=== PATIENT | female | born 1960 | race Caucasian/White ===

== ENCOUNTER 2017-02-19 02:25 | Inpatient (IN) | payer BC ==
[~2017-02-19] VITALS: Ht 165.1 cm; Wt 87.4 kg
[2017-02-19] MEDS ORDERED: HYDROmorphone HCL 2 MG/ML VL IV ONE ×4 (03:30→11:00)
[2017-02-19] MEDS ORDERED: ONDANSETRON HCL 4 MG/2 ML VIAL IV ONE (03:30)
[2017-02-19] MEDS ORDERED: SODIUM CHLORIDE 0.9% 1,000 ML IV ONE (03:30)
[2017-02-19 04:53] LABS: Basophils # (auto) 0 uL; Basophils % (auto) 0.2 % (0.0-2.0); Eosinophils # (auto) 0 uL; Eosinophils % (auto) 0.2 % (0.0-7.0); Hematocrit 34.2 % (36.0-46.0); Hemoglobin 11.4 g/dL (12.2-16.2); Lymphocytes # (auto) 1.4 uL; Lymphocytes % (auto) 17.8 % (10.0-50.0); Mean Corpuscular Hemoglobin 32.3 pg (28.0-32.0); Mean Corpuscular Hgb Conc. 33.4 g/dL (32.0-36.0); Mean Corpuscular Volume 96.8 fL (80.0-100.0); Mean Platelet Volume 7.2 fL (7.4-10.4); Monocytes # (auto) 0.5 uL; Monocytes % (auto) 6.8 % (0.0-12.0); Neutrophils # (auto) 5.9 uL; Platelet Count (auto) 267 10^3/uL (140-450); Red Cell Distribution Width 13.4 % (11.6-16.0); White Blood Cell 7.9 10^3/uL (4.4-10.8)
[2017-02-19 05:13] LABS: INR 0.95 (0.9-1.15); Partial Thromboplastin Time 27.7 sec (22.64-33.71); Prothrombin Time 10.3 sec (9.37-12.3)
[2017-02-19 05:30] LABS: Albumin 3.4 g/dL (3.4-5.0); BUN/Creatinine Ratio 18.8; Bilirubin, Total 0.4 mg/dL (0.2-1.0); Calcium 8.3 mg/dL (8.5-10.1); Potassium 3.6 mmol/L (3.5-5.1); Total Protein 6.8 g/dL (6.4-8.2)
[2017-02-19] MEDS ORDERED: SODIUM CHLORIDE 0.9% 1,000 ML IV SCH (06:42)
[2017-02-19] MEDS ORDERED: HYDROmorphone HCL 2 MG/ML VL IV PRN (06:45)
[2017-02-19] MEDS ORDERED: fentaNYL CITRATE 100 MCG/2 ML VL IV ONE (06:45)
[2017-02-19] MEDS ORDERED: ACETAMINOPHEN 325 MG TAB PO PRN (06:45)
[2017-02-19] MEDS: LEVOTHYROXINE SODIUM 100 MCG TAB PO SCH ×2 (07:14→09:40)
[2017-02-19] MEDS: FAMOTIDINE 20 MG TAB PO SCH ×2 (09:40→20:53)
[2017-02-19 10:00] VITALS: BP 155/86
[2017-02-19 10:22] VITALS: BP 155/86
[2017-02-19 11:43] LABS: Urine Bilirubin Negative (Negative); Urine Blood TRACE /uL (Negative); Urine Color Yellow (Yellow); Urine Glucose Normal (Normal); Urine Ketone Negative (Negative); Urine Nitrite Negative (Negative); Urine RBC <1 /hpf (0 - 4); Urine Urobilinogen Normal (Negative); Urine pH 6.5 (5.0-8.0)
[2017-02-19] MEDS: HYDROmorphone HCL 2 MG/ML VL IV PRN ×3 (12:58→20:53)
[2017-02-19] MEDS ORDERED: THIAMINE HCL 100 MG/ML 2ML VIAL IV ONE (13:00)
[2017-02-19] MEDS ORDERED: FOLIC ACID 1 MG in D5W 5% 50 ML IV ONE (13:00)
[2017-02-19] MEDS ORDERED: LORazepam 2MG/ML-1ML VIAL IV PRN (13:00)
[2017-02-19 13:18] LABS: B-Type Natriuretic Peptide 139.86 pg/mL (0-100); Temperature: 22.9 C (20.0-25.0)
[2017-02-19 13:33] VITALS: BP 149/81
[2017-02-19 17:00] VITALS: BP 151/76
[2017-02-19] MEDS ORDERED: IOHEXOL 300 MG/ML 100ML BOTTLE IJ ONE (17:47)
[2017-02-19 22:00] VITALS: BP 147/89
[2017-02-20] MEDS: HYDROmorphone HCL 2 MG/ML VL IV PRN ×7 (01:04→23:50)
[2017-02-20 05:00] VITALS: BP 131/76
[2017-02-20 05:45] LABS: Basophils # (auto) 0 uL; Basophils % (auto) 0.3 % (0.0-2.0); Eosinophils # (auto) 0 uL; Eosinophils % (auto) 0.2 % (0.0-7.0); Hematocrit 34.6 % (36.0-46.0); Hemoglobin 11.5 g/dL (12.2-16.2); Lymphocytes # (auto) 1.5 uL; Lymphocytes % (auto) 18.5 % (10.0-50.0); Mean Corpuscular Hgb Conc. 33.3 g/dL (32.0-36.0); Mean Corpuscular Volume 95.8 fL (80.0-100.0); Mean Platelet Volume 8.3 fL (7.4-10.4); Monocytes # (auto) 0.7 uL; Monocytes % (auto) 8.9 % (0.0-12.0); Neutrophils # (auto) 5.8 uL; Neutrophils % (auto) 72.1 % (37.0-80.0); Platelet Count (auto) 241 10^3/uL (140-450)
[2017-02-20] MEDS: LEVOTHYROXINE SODIUM 100 MCG TAB PO SCH ×2 (06:03→09:27)
[2017-02-20 06:07] LABS: Albumin 3.5 g/dL (3.4-5.0); BUN/Creatinine Ratio 10.7; Calcium 8.7 mg/dL (8.5-10.1); Potassium 3.6 mmol/L (3.5-5.1)
[2017-02-20 06:09] LABS: Bilirubin, Total 0.9 mg/dL (0.2-1.0); Total Protein 6.8 g/dL (6.4-8.2)
[2017-02-20 07:30] VITALS: BP 139/92
[2017-02-20] MEDS ORDERED: ENOXAPARIN SOD 40 MG/0.4 ML SYRINGE SC ONE (07:45)
[2017-02-20] MEDS: ONDANSETRON HCL 4 MG/2 ML VIAL IV PRN (08:03)
[2017-02-20 09:00] VITALS: BP 139/92
[2017-02-20] MEDS: diphenhdrAMINE HCL 50 MG/1 ML VL IV PRN ×2 (09:26→21:31)
[2017-02-20] MEDS: FOLIC ACID 1 MG TAB PO SCH (09:27)
[2017-02-20] MEDS: FAMOTIDINE 20 MG TAB PO SCH ×2 (09:27→21:31)
[2017-02-20] MEDS: THIAMINE HCL 100 MG TAB PO SCH (09:28)
[2017-02-20] MEDS: HYDROcodone-ACET 5/325MG TAB PO PRN (09:44)
[2017-02-20 13:00] VITALS: BP 134/91
[2017-02-20 20:00] VITALS: BP 147/87
[2017-02-20 21:15] VITALS: BP 147/87
[2017-02-21] MEDS: HYDROcodone-ACET 5/325MG TAB PO PRN (02:10)
[2017-02-21] MEDS: HYDROmorphone HCL 2 MG/ML VL IV PRN ×10 (03:10→22:47)
[2017-02-21 05:17] VITALS: BP 136/76
[2017-02-21 05:49] LABS: Basophils # (auto) 0 uL; Basophils % (auto) 0.1 % (0.0-2.0); Eosinophils # (auto) 0 uL; Eosinophils % (auto) 0.4 % (0.0-7.0); Hematocrit 36.4 % (36.0-46.0); Hemoglobin 12.1 g/dL (12.2-16.2); Lymphocytes # (auto) 1.1 uL; Lymphocytes % (auto) 11.6 % (10.0-50.0); Mean Corpuscular Hemoglobin 32.4 pg (28.0-32.0); Mean Corpuscular Hgb Conc. 33.2 g/dL (32.0-36.0); Mean Corpuscular Volume 97.4 fL (80.0-100.0); Mean Platelet Volume 8.2 fL (7.4-10.4); Monocytes # (auto) 0.8 uL; Neutrophils # (auto) 7.3 uL; Neutrophils % (auto) 78.9 % (37.0-80.0); Platelet Count (auto) 227 10^3/uL (140-450); Red Cell Distribution Width 13.1 % (11.6-16.0); White Blood Cell 9.3 10^3/uL (4.4-10.8)
[2017-02-21 06:02] LABS: BUN/Creatinine Ratio 18.4; Potassium 3.6 mmol/L (3.5-5.1)
[2017-02-21] MEDS: ONDANSETRON HCL 4 MG/2 ML VIAL IV PRN ×3 (06:23→22:48)
[2017-02-21] MEDS: LEVOTHYROXINE SODIUM 100 MCG TAB PO SCH (07:02)
[2017-02-21 07:30] VITALS: BP 135/81
[2017-02-21 09:08] VITALS: BP 135/81
[2017-02-21] MEDS ORDERED: hydrALAZINE HCL 20 MG/ML VL IV PRN (09:15)
[2017-02-21] MEDS ORDERED: LABETALOL HCL 5 MG/ML 4ML SYRINGE IV PRN (09:15)
[2017-02-21] MEDS ORDERED: KETOROLAC TROMETH 30 MG/ML 1ML VIAL IV ONE (09:15)
[2017-02-21] MEDS ORDERED: MORPHINE SULF INJ 2 MG/ML SYRINGE 1ML IV PRN (09:15)
[2017-02-21] MEDS ORDERED: MIDAZOLAM HCL 1MG/1ML-2 ML VIAL IV PRN (09:15)
[2017-02-21] MEDS ORDERED: ePHEDrine SULFATE 50 MG/ML AMP IV PRN (09:15)
[2017-02-21] MEDS ORDERED: ONDANSETRON HCL 4 MG/2 ML VIAL IV ONE (09:15)
[2017-02-21] MEDS ORDERED: ceFAZolin 1GM/50ML D5W 50 ML IV ONE ×2 (09:31→09:54)
[2017-02-21] MEDS ORDERED: TETRACAINE 1% INJ 2 ML VIAL IJ ONE (09:42)
[2017-02-21] MEDS ORDERED: fentaNYL CITRATE 100 MCG/2 ML VL ONE (09:45)
[2017-02-21] MEDS ORDERED: MIDAZOLAM HCL 1MG/1ML-2 ML VIAL ONE ×2 (09:45→10:12)
[2017-02-21] MEDS ORDERED: PROPOFOL 10 MG/ML 20 ML IV ONE (10:00)
[2017-02-21] MEDS: FAMOTIDINE 20 MG TAB PO SCH ×2 (10:00→21:10)
[2017-02-21] MEDS ORDERED: DEXAMETHASONE SOD PHOS 10MG/1ML VIAL INJ ONE (10:00)
[2017-02-21] MEDS: FOLIC ACID 1 MG TAB PO SCH (10:00)
[2017-02-21] MEDS: THIAMINE HCL 100 MG TAB PO SCH (10:00)
[2017-02-21] MEDS ORDERED: MEPERIDINE HCL (50 MG/ML) 1 ML VIAL ONE (10:24)
[2017-02-21] MEDS ORDERED: PHENYLEPHRINE HCL 10 MG/ML VL ONE (10:49)
[2017-02-21] MEDS ORDERED: METOPROLOL TARTRATE 1MG/1ML-5ML VIAL IV ONE ×2 (13:07→13:30)
[2017-02-21] MEDS ORDERED: ENOXAPARIN SOD 40 MG/0.4 ML SYRINGE SC ONE (13:15)
[2017-02-21 13:33] LABS: Hemoglobin 11.9 g/dL (12.2-16.2)
[2017-02-21] MEDS ORDERED: SOTALOL HCL 80 MG TAB PO ONE (13:45)
[2017-02-21 16:53] VITALS: BP 96/62
[2017-02-21] MEDS: ceFAZolin 1GM/50ML D5W 50 ML IV SCH ×2 (18:24→23:35)
[2017-02-21] MEDS: SOTALOL HCL 80 MG TAB PO SCH (21:10)
[2017-02-21 21:34] VITALS: BP 114/72
[2017-02-22] MEDS: HYDROmorphone HCL 2 MG/ML VL IV PRN ×7 (01:05→20:49)
[2017-02-22] MEDS: ONDANSETRON HCL 4 MG/2 ML VIAL IV PRN ×3 (03:07→20:50)
[2017-02-22] MEDS: ceFAZolin 1GM/50ML D5W 50 ML IV SCH ×3 (05:08→18:20)
[2017-02-22 05:31] VITALS: BP 132/74
[2017-02-22] MEDS: LEVOTHYROXINE SODIUM 100 MCG TAB PO SCH (06:29)
[2017-02-22 07:10] LABS: Hematocrit 26.3 % (36.0-46.0); Hemoglobin 9.1 g/dL (12.2-16.2)
[2017-02-22 09:10] VITALS: BP 133/84
[2017-02-22] MEDS: ENOXAPARIN SOD 40 MG/0.4 ML SYRINGE SC SCH (10:00)
[2017-02-22] MEDS: THIAMINE HCL 100 MG TAB PO SCH (10:08)
[2017-02-22] MEDS: FOLIC ACID 1 MG TAB PO SCH (10:08)
[2017-02-22] MEDS: FAMOTIDINE 20 MG TAB PO SCH ×2 (10:08→21:50)
[2017-02-22] MEDS: SOTALOL HCL 80 MG TAB PO SCH ×2 (10:09→21:50)
[2017-02-22 12:48] VITALS: BP 131/68
[2017-02-22 17:34] VITALS: BP 108/50
[2017-02-22 20:00] VITALS: BP 108/67
[2017-02-22 22:00] VITALS: BP 108/67
[2017-02-23] VITALS (11 sets, daily range): BP systolic 88–139; BP diastolic 50–83
[2017-02-23] MEDS: ceFAZolin 1GM/50ML D5W 50 ML IV SCH ×3 (00:04→12:17)
[2017-02-23] MEDS: ONDANSETRON HCL 4 MG/2 ML VIAL IV PRN ×2 (05:04→20:41)
[2017-02-23] MEDS: HYDROmorphone HCL 2 MG/ML VL IV PRN ×4 (05:04→20:41)
[2017-02-23] MEDS: LEVOTHYROXINE SODIUM 100 MCG TAB PO SCH (06:41)
[2017-02-23 08:14] LABS: Hematocrit 25.2 % (36.0-46.0); Hemoglobin 8.6 g/dL (12.2-16.2)
[2017-02-23] MEDS: SOTALOL HCL 80 MG TAB PO SCH ×2 (09:33→22:00)
[2017-02-23] MEDS: FAMOTIDINE 20 MG TAB PO SCH ×2 (09:33→22:01)
[2017-02-23] MEDS: FOLIC ACID 1 MG TAB PO SCH (09:33)
[2017-02-23] MEDS: ENOXAPARIN SOD 40 MG/0.4 ML SYRINGE SC SCH (09:34)
[2017-02-23] MEDS: THIAMINE HCL 100 MG TAB PO SCH (09:34)
[2017-02-23] MEDS ORDERED: ALBUMIN 5% 250 ML IV ONE (23:15)
[2017-02-24] VITALS (7 sets, daily range): BP systolic 90–125; BP diastolic 46–76
[2017-02-24] MEDS: ONDANSETRON HCL 4 MG/2 ML VIAL IV PRN (03:58)
[2017-02-24] MEDS: HYDROmorphone HCL 2 MG/ML VL IV PRN ×7 (03:58→22:25)
[2017-02-24] MEDS: LEVOTHYROXINE SODIUM 100 MCG TAB PO SCH (06:33)
[2017-02-24] MEDS: FOLIC ACID 1 MG TAB PO SCH (09:17)
[2017-02-24] MEDS: FAMOTIDINE 20 MG TAB PO SCH ×2 (09:17→22:02)
[2017-02-24] MEDS: ENOXAPARIN SOD 40 MG/0.4 ML SYRINGE SC SCH (09:17)
[2017-02-24] MEDS: THIAMINE HCL 100 MG TAB PO SCH (09:18)
[2017-02-24] MEDS ORDERED: SOTALOL HCL 80 MG TAB PO SCH (10:00)
[2017-02-24 10:01] LABS: Hematocrit 32.4 % (36.0-46.0); Hemoglobin 10.7 g/dL (12.2-16.2)
[2017-02-24] MEDS ORDERED: DOCUSATE SOD 100 MG CAP PO ONE (10:30)
[2017-02-24] MEDS: HYDROcodone-ACET 5/325MG TAB PO PRN (20:10)
[2017-02-24] MEDS: DOCUSATE SOD 100 MG CAP PO SCH (22:00)
[2017-02-25 05:30] VITALS: BP 132/78
[2017-02-25] MEDS: HYDROmorphone HCL 2 MG/ML VL IV PRN ×3 (05:31→12:09)
[2017-02-25] MEDS: LEVOTHYROXINE SODIUM 100 MCG TAB PO SCH (05:31)
[2017-02-25 08:26] LABS: Hematocrit 28.5 % (36.0-46.0); Hemoglobin 9.6 g/dL (12.2-16.2)
[2017-02-25] MEDS ORDERED: RIVA10TA PO (08:52)
[2017-02-25 09:00] VITALS: BP 130/85
[2017-02-25] MEDS: DOCUSATE SOD 100 MG CAP PO SCH (10:00)
[2017-02-25] MEDS: FAMOTIDINE 20 MG TAB PO SCH (10:10)
[2017-02-25] MEDS: FOLIC ACID 1 MG TAB PO SCH (10:10)
[2017-02-25] MEDS: THIAMINE HCL 100 MG TAB PO SCH (10:10)
[2017-02-25] MEDS: ENOXAPARIN SOD 40 MG/0.4 ML SYRINGE SC SCH (10:11)
[2017-02-25] MEDS: HYDROcodone-ACET 5/325MG TAB PO PRN (10:11)
[2017-02-25 13:00] VITALS: BP 120/74
== END 2017-02-25 15:10 | disposition home health service (06) | DRG 470 ==
LOC: ER 02:25 → OVERFLOW 02:26 → EDUNIT# 02:26 → WEST WING 09:26 → TELE-WESTW 02-22 00:07
PROVIDERS: ADMIT Nurse Practitioner; ATTEND Internal Medicine
PROC: 0MTM0ZZ Resection of Left Hip Bursa and Ligament, Open Approach (ICD-10-PCS; 2017-02-21)
PROC: 0SRB0JZ Replacement of Left Hip Joint with Synthetic Substitute, Open Approach (ICD-10-PCS; principal; 2017-02-21 10:01)
PROC: 30233N1 Transfusion of Nonautologous Red Blood Cells into Peripheral Vein, Percutaneous Approach (ICD-10-PCS; 2017-02-23)
DX: S72.032A Displaced midcervical fracture of left femur, initial encounter for closed fracture (principal); X58.XXXA Exposure to other specified factors, initial encounter; D64.9 Anemia, unspecified; E03.9 Hypothyroidism, unspecified; E66.9 Obesity, unspecified; F10.10 Alcohol abuse, uncomplicated; F32.9 Major depressive disorder, single episode, unspecified; W18.39XA Other fall on same level, initial encounter; I48.91 Unspecified atrial fibrillation; M70.72 Other bursitis of hip, left hip; I51.7 Cardiomegaly; Y99.8 Other external cause status; Y93.89 Activity, other specified; Y92.89 Other specified places as the place of occurrence of the external cause; Z79.899 Other long term (current) drug therapy; Z68.32 Body mass index [BMI] 32.0-32.9, adult
CPT/HCPCS: 36415; 51702; 71010; 71260; 73501; 73502; 73700; 80048; 80053; 80307; 81001; 83880; 85014; 85018; 85025; 85610; 85730; 86850; 86900; 86901; 86920; 93005; 93306; 96374; 96375; 96376; 97001; 97110; 97116; 97530; J0690; J1100; J1885; J2250; J2405; J2704; J7060